=== PATIENT | male | born 1995 | race Two or more races ===

== ENCOUNTER 2018-05-06 00:27 | Emergency (ER) | payer BC ==
[~2018-05-06] VITALS: Ht 180.3 cm; Wt 65.3 kg
[2018-05-06 01:02] LABS: Basophils # (auto) 0.1 uL; Basophils % (auto) 1.1 % (0.0-2.0); Eosinophils # (auto) 0.2 uL; Hematocrit 40.3 % (41.0-53.0); Hemoglobin 13.8 g/dL (13.5-17.5); Lymphocytes % (auto) 43.2 % (10.0-50.0); Mean Corpuscular Hemoglobin 28.7 pg (28.0-32.0); Mean Corpuscular Hgb Conc. 34.4 g/dL (32.0-36.0); Mean Corpuscular Volume 83.5 fL (80.0-100.0); Monocytes # (auto) 0.9 uL; Monocytes % (auto) 13.5 % (0.0-12.0); Neutrophils # (auto) 2.7 uL; Neutrophils % (auto) 39.2 % (37.0-80.0); Platelet Count (auto) 304 10^3/uL (140-450); Red Blood Cells 4.82 10^6/uL (4.5-5.90); Red Cell Distribution Width 13.1 % (11.8-14.3); White Blood Cell 6.9 10^3/uL (4.4-10.8)
[2018-05-06 01:15] LABS: Alanine Aminotransferase 89 U/L (16-61); Albumin 3.7 g/dL (3.4-5.0); Anion Gap 9 (5-15); Aspartate Aminotransferase 41 U/L (15-37); BUN/Creatinine Ratio 25.7; Blood Urea Nitrogen 18 mg/dL (7-18); Calcium 9.4 mg/dL (8.5-10.1); Carbon Dioxide 27 mmol/L (21-32); Chloride 100 mmol/L (98-107); GFR African American 183 mL/min; GFR Non-African American 151 mL/min; Glucose 103 mg/dL (74-106); Potassium 4.1 mmol/L (3.5-5.1); Sodium 136 mmol/L (136-145)
[2018-05-06 01:22] LABS: Alkaline Phosphatase 195 U/L (45-117); Bilirubin, Total 0.9 mg/dL (0.2-1.0); Total Protein 8.4 g/dL (6.4-8.2)
[2018-05-06] MEDS ORDERED: ONDANSETRON ODT 4 MG TAB PO ONE (02:30)
[2018-05-06 04:04] LABS: Alcohol, Urine < 3.0 mg/dL (0-5); Amphetamine Screen, Urine NEGATIVE (NEGATIVE); Barbiturate Scree,Urine NEGATIVE (NEGATIVE); Benzodiazephine Screen, Urine NEGATIVE (NEGATIVE); Cannabinoid Screen, Urine NEGATIVE (NEGATIVE); Cocaine Screen, Urine NEGATIVE (NEGATIVE); Opiate Scree,Urine NEGATIVE (NEGATIVE); Phencyclidine Screen, Urine NEGATIVE (NEGATIVE)
[2018-05-06] MEDS ORDERED: PROPRANOLOL HCL 20 MG TAB PO ONE (04:15)
[2018-05-06 04:21] LABS: Urine Bacteria FEW /hpf (None Seen); Urine Blood Negative /uL (Negative); Urine Mucus FEW (None Seen); Urine Specific Gravity 1.028 (1.001-1.035); Urine WBC 4 /hpf (0 - 3)
[2018-05-06 04:44] VITALS: BP 112/57
== END 2018-05-06 04:57 | disposition home or self-care (01) ==
LOC: EDBD 00:34 → ER 00:34
DX: E05.90 Thyrotoxicosis, unspecified without thyrotoxic crisis or storm (principal); F12.10 Cannabis abuse, uncomplicated
CPT/HCPCS: 36415; 71045; 80053; 80307; 81001; 84443; 84484; 85025; 93005; 99284; Q0162

== ENCOUNTER → 2018-06-25 | Outpatient (CLI) | payer BC ==
[2018-06-25 10:00] LABS: Basophils # (auto) 0 uL; Basophils % (auto) 0.3 % (0.0-2.0); Eosinophils # (auto) 0.1 uL; Eosinophils % (auto) 2.4 % (0.0-7.0); Hematocrit 41.7 % (41.0-53.0); Hemoglobin 14.2 g/dL (13.5-17.5); Lymphocytes # (auto) 2.2 uL; Lymphocytes % (auto) 35.2 % (10.0-50.0); Mean Corpuscular Hemoglobin 28.9 pg (28.0-32.0); Monocytes # (auto) 0.8 uL; Monocytes % (auto) 12.4 % (0.0-12.0); Neutrophils # (auto) 3.1 uL; Neutrophils % (auto) 49.7 % (37.0-80.0); Nucleated Red Blood Cells % 0.1 %; Platelet Count (auto) 294 10^3/uL (140-450); Red Cell Distribution Width 12.9 % (11.8-14.3); White Blood Cell 6.3 10^3/uL (4.4-10.8)
[2018-06-25 10:10] LABS: Anion Gap 8 (5-15); BUN/Creatinine Ratio 20.4; Blood Urea Nitrogen 10 mg/dL (7-18); Carbon Dioxide 27 mmol/L (21-32); Chloride 101 mmol/L (98-107); Glucose 88 mg/dL (74-106); Magnesium 1.5 mg/dL (1.6-2.6); Potassium 3.6 mmol/L (3.5-5.1); Sodium 136 mmol/L (136-145); Uric Acid 6.7 mg/dL (3.5-7.2)
[2018-06-25 10:15] LABS: Alanine Aminotransferase 97 U/L (16-61); Alkaline Phosphatase 186 U/L (45-117); Aspartate Aminotransferase 44 U/L (15-37); Bilirubin, Total 1.2 mg/dL (0.2-1.0); Cholesterol 111 mg/dL (< 200); HDL Cholesterol 53 mg/dL (40-59); LDL Cholesterol 59 mg/dL (< 100); Total Protein 8.3 g/dL (6.4-8.2); Triglycerides 58 mg/dL (< 150)
[2018-06-25 10:18] LABS: GFR African American > 60 mL/min; GFR Non-African American > 60 mL/min
[2018-06-25 10:37] LABS: Free T3 > 20.00 pg/mL (2.3-4.2); T3 Total 6.86 ng/mL (0.60-1.81)
== END | disposition home or self-care (01) ==
LOC: LAB 08:49
PROVIDERS: ATTEND Internal Medicine
DX: Z13.228 Encounter for screening for other metabolic disorders (principal); E05.90 Thyrotoxicosis, unspecified without thyrotoxic crisis or storm; R73.09 Other abnormal glucose
CPT/HCPCS: 36415; 80053; 80061; 82306; 82607; 83036; 83735; 84439; 84443; 84480; 84481; 84550; 85025

== ENCOUNTER 2024-10-15 16:17 | Emergency (ER) | payer BC, OTHER ==
[~2024-10-15] VITALS: Ht 180.3 cm; Wt 98.1 kg
--- NOTE | 2024-10-15 17:07 | DVH ---
CT BRAIN WITHOUT CONTRAST HISTORY: L facial weakness, forehead sparing TECHNIQUE: Axial scans were obtained from the skull base through the vertex without contrast. Sagitta l and coronal reformats were generated. One or more of the following radiation dose reduction techniq ues were used for this examination: automated exposure control, adjustment of the mA and/or kV accord ing to patient size, use of iterative reconstruction technique. COMPARISON: None FINDINGS: The ventricular system and cortical sulci are normal in size for patient age. No abnormal extra-axial fluid collections or findings of intracranial hemorrhage. No intracranial mass or findings of acute ischemic infarction are demonstrated on these noncontrast s cans. Visualized paranasal sinuses are clear. No evidence of skull fracture. Other: Negative. IMPRESSION: 1. No acute intracranial findings. Negative CT scan head.
--- NOTE | 2024-10-15 17:09 | DVH ---
CHEST RADIOGRAPH Indication: L facial weakness Technique: Single frontal view of the chest was obtained Comparison: None FINDINGS: Lines and Tubes: None Lungs: No focal consolidation. Pleura: No effusion. No pneumothorax. Cardiomediastinal contours: Unremarkable Bones: No acute osseous abnormality. IMPRESSION: No acute cardiopulmonary disease.
--- NOTE | 2024-10-15 17:12 | ED.PDOC ---
HPI (NEURO) HPI Comments 29y M who presents to the ED for chief complaint of L facial weakness. Pt states he has been having numbness and tingling to the left lower lip yesterday PM. Pt states today after work, he started to have tingling radiating to the L side of his face with onset of L facial weakness and he came to the ED for further evaluation. Pt now in the ED, is otherwise alert and oriented x 4 and no noted changes in gait, vision, or speech are noted. Pt otherwise denies any associated pain or associated headache, dizzinesss, nausea, vomiting or any associated symptoms. Pt otherwise denies any other symptoms at this time. Chief Complaint: Left Sided Weakness Time Seen by MD: 17:10 Primary Care Provider: NONE Reviewed Notes: Medications, Allergies Information Source: Patient Mode of Arrival: Ambulatory Brought in by: self Past Medical History Past Medical History (Other): hyperthyroidism Surgical History: Denies all surgeries Family History Family History: Unknown Social History Smoker: Non-Smoker Alcohol: Rarely Drugs: Marijuana Lives In: Home Constitutional: denies: chills, diaphoresis, fatigue, fever, malaise, sweats, weakness, others EENTM: denies: blurred vision, double vision, ear bleeding, ear discharge, ear drainage, ear pain, ear ringing, eye pain, eye redness, hearing loss, mouth pain, mouth swelling, nasal discharge, nose bleeding, nose congestion, nose pain, photophobia, tearing, throat pain, throat swelling, voice changes, others Respiratory: denies: cough, hemoptysis, orthopnea, SOB at rest, shortness of breath, SOB with excertion, stridor, wheezing, others Cardiovascular: denies: chest pain, dizzy spells, diaphoresis, Dyspnea on exertion, edema, irregular heart beat, left arm pain, lightheadedness, palpitations, PND, syncope, others Gastrointestinal: denies: abdomen distended, abdominal pain, blood streaked bowels, constipated, diarrhea, dysphagia, difficulty swallowing, hematemesis, melena, nausea, poor appetite, poor fluid intake, rectal bleeding, rectal pain, vomiting, others Genitourinary: denies: burning, dysuria, flank pain, frequency, hematuria, incontinence, penile discharge, penile sore, pain, testicle pain, testicle swelling, urgency, others Neurological: reports: left sided numbness, left sided weakness; denies: dizziness, fainting, headache, numbness, paresthesia, pre-existing deficit, righ t sided numbness, right sided weakness, seizure, speech problems, tingling, tremors, weakness, others Musculoskeletal: denies: back pain, gout, joint pain, joint swelling, muscle pain, muscle stiffness, neck pain, others Integumetry: denies: bruises, change in color, change in hair/nails, dryness, laceration, lesions, lumps, rash, wounds, others Allergic/Immunocompromised: denies: Difficulty Healing, Frequent Infections, Hives, Itching, others Hematologic/Lymphatic: denies: anemia, blood clots, easy bleeding, easy bruising, swollen glands, others Endocrine: denies: excessive hunger, excessive sweating, excessive thirst, excessive urination, flushing, intolerance to cold, intolerance to heat, unexplained weight gain, unexplained weight loss, others Psychiatric: denies: anxiety, bipolar disorder, depression, hopeless, panic disorder, schizophrenia, sleepless, suicidal, others All Other Systems: Reviewed and Negative Physical Exam General Appearance: No Apparent Distress HEENT: PERRL/EOMI, Other (mild L facial droop) Neck: Full Range of Motion, Normal Inspection Respiratory: Lungs Clear, No Accessory Muscle Use, No Respiratory Distress, No rmal Breath Sounds Cardiovascular: No Edema, No JVD, Regular Rate/Rhythm Breast Exam: Deferred Gastrointestinal: Non Tender, Soft Genitalia: Deferred Pelvic: Deferred Rectal: Deferred Extremities: Normal inspection, Normal range of motion, Non-tender, No pedal edema Neurologic: Alert (Oriented x4), Other (Left facial weakness which is forehead sparing. Cranial nerves 2 through 12 otherwise intact. Motor strength 5/5 bilateral upper and lower extremities. Sensation intact to light touch in the face and all extremities.) Cerebellar Function: NOT DONE Reflexes: NOT DONE Skin: Dry, Normal Color, Warm Lymphatic: NOT DONE Was a procedure done? Was a procedure done?: No Differential Diagnosis (SZ) CVA: Cortes's Palsy, CVA, Electrolyte Imbalance, Encephalopathy, Hypoglycemia, TIA General Weakness: Electrolyte imbalance Headache: Closed Head Injury, Intracerebral Hemorrhage, Subarachnoid Hemorrhage , Subdural Hemorrhage, Mass Lesion X-Ray, Labs, Meds, VS Vital Signs Date Time Temp Pulse Resp B/P (MAP) Pulse Ox O2 Delivery O2 Flow Rate FiO2 10/15/24 21:40 99.3 72 18 125/79 (94) 97 99.3 10/15/24 19:30 99.4 73 20 122/84 (97) 99 99.4 10/15/24 16:25 98.9 82 18 125/79 (94) 99 98.9 Lab Test 10/15/24 17:55 10/15/24 16:54 Range/Units Troponin I High Sensitivity < 3 L 3 L </=54 ng/L White Blood Count 7.9 4.4-10.8 10^3/uL Red Blood Count 4.93 4.5-5.90 10^6/uL Hemoglobin 15.9 13.5-17.5 g/dL Hematocrit 45.2 41.0-53.0 % Mean Corpuscular Volume 91.7 80.0-100.0 fL Mean Corpuscular Hemoglobin 32.2 H 28.0-32.0 pg Mean Corpuscular Hemoglobin Concent 35.1 32.0-36.0 g/dL Red Cell Distribution Width 13.1 11.8-14.3 % Platelet Count 302 140-450 10^3/uL Mean Platelet Volume 8.5 6.9-10.8 fL Neutrophils (%) (Auto) 58.0 37.0-80.0 % Lymphocytes (%) (Auto) 27.3 10.0-50.0 % Monocytes (%) (Auto) 9.0 0.0-12.0 % Eosinophils (%) (Auto) 5.1 0.0-7.0 % Basophils (%) (Auto) 0.6 0.0-2.0 % Neutrophils # (Auto) 4.5 1.6-8.6 10 ^3/uL Lymphocytes # (Auto) 2.1 0.4-5.4 10 ^3/uL Monocytes # (Auto) 0.7 0-1.3 10 ^3/uL Eosinophils # (Auto) 0.4 0-0.8 10 ^3/uL Basophils # (Auto) 0.1 0-0.2 10 ^3/uL Nucleated Red Blood Cells 0.1 % Sodium Level 139 136-145 mmol/L Potassium Level 3.9 3.5-5.1 mmol/L Chloride Level 102 98-107 mmol/L Carbon Dioxide Level 28 20-31 mmol/L Anion Gap 9 5-15 Blood Urea Nitrogen 18 9-23 mg/dL Creatinine 1.09 0.700-1.30 mg/dL Glomerular Filtration Rate Calc 95 >90 mL/min BUN/Creatinine Ratio 16.5 10.0-20.0 Serum Glucose 89 74-106 mg/dL Calcium Level 10.4 8.7-10.4 mg/dL B-Type Natriuretic Peptide 0.98 0-100 pg/mL Free Thyroxine Index Pending Thyroxine (T4) Pending Triiodothyronine (T3) Uptake Pending [place] [address] Ph: [phone] DIAGNOSTIC IMAGING Diagnostic Imaging Report : [id number] Signed PATIENT: PANCHITO BATEMAN ACCT: [id number] UNIT: [id number] : 1995 LOC: ER ROOM / BED: / AGE / SEX: 29 / M ADM STATUS: REG ER SERVICE 1632 ORDERING PHYSICIAN: CASSIDY VILLELA MD PROCEDURE(s): CXR1 - CHEST XRAY 1 VIEW REASON: L facial weakness ORDER NUMBER(s): [id number], ACCESSION NUMBER(s): [id number] CHEST RADIOGRAPH Indication: L facial weakness Technique: Single frontal view of the chest was obtained Comparison: None FINDINGS: Lines and Tubes: None Lungs: No focal consolidation. Pleura: No effusion. No pneumothorax. Cardiomediastinal contours: Unremarkable Bones: No acute osseous abnormality. IMPRESSION: No acute cardiopulmonary disease. ATED BY: ROSY VAZQUEZ DO DICTATED DATE/TIME: 10/15/241706 SIGNED BY: ROSY VAZQUEZ DO SIGNED DATE/TIME: 10/15/241706 CC: [address] [address] Ph: [phone] DIAGNOSTIC IMAGING Diagnostic Imaging Report : [id number] Signed PATIENT: PANCHITO BATEMAN ACCT: [id number] UNIT: [id number] : 1995 LOC: ER ROOM / BED: / AGE / SEX: 29 / M ADM STATUS: REG ER SERVICE 1632 ORDERING PHYSICIAN: CASSIDY VILLELA MD PROCEDURE(s): HWOCT - HEAD WITHOUT CONTRAST REASON: L facial weakness, forehead sparing ORDER NUMBER(s): [id number], ACCESSION NUMBER(s): [id number] CT BRAIN WITHOUT CONTRAST HISTORY: L facial weakness, forehead sparing TECHNIQUE: Axial scans were obtained from the skull base through the vertex without contrast. Sagittal and coronal reformats were generated. One or more of the following radiation dose reduction techniques were used for this examination: automated exposure control, adjustment of the mA and/or kV according to patient size, use of iterative reconstruction technique. COMPARISON: None FINDINGS: The ventricular system and cortical sulci are normal in size for patient age. No abnormal extra-axial fluid collections or findings of intracranial hemorrhage. No intracranial mass or findings of acute ischemic infarction are demonstrated on these noncontrast scans. Visualized paranasal sinuses are clear. No evidence of skull fracture. Other: Negative. IMPRESSION: 1. No acute intracranial findings. Negative CT scan head. ATED BY: CAROLE GAGNON MD DICTATED DATE/TIME: 10/15/241703 SIGNED BY: CAROLE GAGNON MD SIGNED DATE/TIME: 10/15/241703 CC: X-Ray, Labs, Meds, VS Comment 29-year-old male with a history of hyperthyroidism complaining of left facial numbness and weakness Vitals normal Exam remarkable for left facial weakness which is forehead sparing Head CT and chest x-ray unremarkable CBC, basic metabolic panel, BNP and troponin unremarkable, thyroid panel pending No acute treatment was indicated in the ED. Differential includes cortes palsy, CVA or TIA. Facial weakness is forehead sparing which would be atypical for cortes palsy, so plan is to admit or transfer the patient for brain MRI and Neurology evaluation. Case discussed with [facility] who will arrange for the patient to be transferred to [place]. Authorization [id number] Time of 1ST Reevaluation: 17:40 Reevaluation 1ST: Unchanged Patient Education/Counseling: Diagnosis, Treatment Family Education/Counseling: No Family Present Departure 1 Departure Time of Disposition: 17:59 Impression: Primary Impression: Facial weakness Disposition: 09 ADMITTED INPATIENT Admit to: [facility] Condition: Guarded Critical Care Note Critical Care Time?: No Stability Stability form required: No Heart Score Heart Score: Heart Score Response (Comments) Value History N/A 0 EKG N/A 0 Age N/A 0 Risk Factors N/A 0 Troponin N/A 0 Total 0 I personally scribed for CASSIDY VILLELA MD ([email or web address]) on 10/15/24 at 17:12. Electronically submitted by Arun Arias ([facility] I personally scribed for CASSIDY VILLELA MD ([facility] on 10/15/24 at 17:13. Electronically submitted by Arun Arias ([facility]). I personally scribed for CASSIDY VILLELA MD ([facility]) on 10/15/24 at 17:26. Electronically submitted by Arun Arias ([facility]). CASSIDY VILLELA MD October 15, 2024 17:12
[2024-10-15 17:46] LABS: Basophils # (auto) 0.1 10 ^3/uL (0-0.2); Basophils % (auto) 0.6 % (0.0-2.0); Eosinophils # (auto) 0.4 10 ^3/uL (0-0.8); Eosinophils % (auto) 5.1 % (0.0-7.0); Hematocrit 45.2 % (41.0-53.0); Hemoglobin 15.9 g/dL (13.5-17.5); Lymphocytes # (auto) 2.1 10 ^3/uL (0.4-5.4); Lymphocytes % (auto) 27.3 % (10.0-50.0); Mean Corpuscular Hemoglobin 32.2 pg (28.0-32.0); Mean Corpuscular Hgb Conc. 35.1 g/dL (32.0-36.0); Mean Corpuscular Volume 91.7 fL (80.0-100.0); Monocytes # (auto) 0.7 10 ^3/uL (0-1.3); Neutrophils # (auto) 4.5 10 ^3/uL (1.6-8.6); Nucleated Red Blood Cells % 0.1 %; Platelet Count (auto) 302 10^3/uL (140-450); Red Blood Cells 4.93 10^6/uL (4.5-5.90); Red Cell Distribution Width 13.1 % (11.8-14.3); White Blood Cell 7.9 10^3/uL (4.4-10.8)
[2024-10-15 17:52] LABS: Chloride 102 mmol/L (98-107); Potassium 3.9 mmol/L (3.5-5.1); Sodium 139 mmol/L (136-145)
[2024-10-15 17:53] LABS: Anion Gap 9 (5-15); Calcium 10.4 mg/dL (8.7-10.4); Carbon Dioxide 28 mmol/L (20-31)
[2024-10-15 17:58] LABS: BUN/Creatinine Ratio 16.5 (10.0-20.0); Blood Urea Nitrogen 18 mg/dL (9-23); Glucose 89 mg/dL (74-106)
[2024-10-15 23:05] VITALS: BP 107/80; PULSE 66; RESP 18; TEMP 98; O2SAT 100
[2024-10-17 08:07] LABS: Free Thyroxine Index 2.2 (1.2-4.9); Thyroxine (T4) 8.2 ug/dL (4.5-12.0)
== END 2024-10-15 23:32 | disposition short-term general hospital (02) ==
LOC: ER 16:26
DX: R29.810 Facial weakness (principal); F12.90 Cannabis use, unspecified, uncomplicated; E05.90 Thyrotoxicosis, unspecified without thyrotoxic crisis or storm
CPT/HCPCS: 36415; 70450; 71045; 80048; 83880; 84443; 84484; 85025